=== PATIENT | female | born 1975 | race Caucasian/White ===

== ENCOUNTER 2025-05-07 08:06 | Outpatient (CLI) | payer OTHER, MEDICAID | END 2025-05-07 08:07 | disposition home or self-care (01) | LOC: SCSMRI 08:06 | PROVIDERS: ATTEND Orthopaedic Surgery | DX: M54.16 Radiculopathy, lumbar region (principal); M54.12 Radiculopathy, cervical region; M54.50 Low back pain, unspecified; M25.512 Pain in left shoulder; M54.2 Cervicalgia; M89.8X1 Other specified disorders of bone, shoulder; M48.061 Spinal stenosis, lumbar region without neurogenic claudication; M48.07 Spinal stenosis, lumbosacral region; M48.02 Spinal stenosis, cervical region | CPT/HCPCS: 72141; 72148 ==